=== PATIENT | female | born 1955 | race Caucasian/White ===

== ENCOUNTER → 2017-03-03 | Outpatient (CLI) | payer BC ==
[~2017-03-03] MED LIST: CITALOPRAM HYDR20 MG PO; DIAZEPAM5 M1 PO; FLEXERIL10 MG PO; GLYCOLAX17 GM/DOSE PO; NAPROSYN 500MG500 MG PO
--- NOTE | 2017-03-05 16:39 | RADIOLOGY REPORT PS360 ---
DIG MAMM-SCREEN [facility] W/CAD CAD Screening COMPARISON: Digital mammograms 08/02/2015 and 06/13/2014 INDICATION: There is no personal or family history of breast cancer. TECHNIQUE: Standard CC and MLO images were obtained. R2 CAD reviewed. FINDINGS: There is a diffusely dense and heterogenic parenchymal pattern somewhat lessening the sensitivity of mammography. There is no suspicious lesion and no suspicious microcalcifications. IMPRESSION: Moderately and diffusely dense parenchymal pattern no suspicious lesion seen recommend yearly follow-up BI-RADS CATEGORY: 1_Negative RECOMMENDED FOLLOWUP: 12M 12 MONTH FOLLOW-UP (A letter has been sent to the patient regarding results of the study.)
== END ==
LOC: RAD 10:24
DX: Z12.31 Encounter for screening mammogram for malignant neoplasm of breast (principal)
CPT/HCPCS: G0202

== ENCOUNTER → 2017-04-16 | Outpatient (CLI) | payer BC ==
[2017-04-16 10:05] LABS: BUN 11 mg/dL (7-18); GFR (ESTIMATED) 85 ML/MIN (59-)
== END ==
LOC: LAB 08:03
PROVIDERS: Nurse Practitioner Family
DX: Z00.00 Encounter for general adult medical examination without abnormal findings (principal)